=== PATIENT | female | born 1990 | race Caucasian/White ===

== ENCOUNTER 2020-10-18 05:26 | Day surgery (SDC) | payer OTHER ==
[2020-10-15 09:09] LABS: HEMATOCRIT 37.7 % (36.0-47.0); HEMOGLOBIN 13.3 g/dL (12.0-15.5); MEAN CORPUSCULAR HGB CONC 35.2 g/dL (32.0-36.0); MEAN CORPUSCULAR VOLUME 94 fl (80-97); PLATELET COUNT 205 10^3/uL (150-450); RED BLOOD COUNT 4.03 10^6/uL (3.72-5.28); RED CELL DISTRIBUTION WIDTH 11.8 % (11.5-14.0); WHITE BLOOD COUNT 4.8 10^3/uL (4.0-10.5)
[2020-10-15 09:17] LABS: APPEARANCE,URINE SLIGHTLY-CLOUDY; BILIRUBIN,URINE NEGATIVE (NEGATIVE); COLOR,URINE YELLOW; GLUCOSE, URINE NEGATIVE (NEGATIVE); KETONES,URINE NEGATIVE (NEGATIVE); LEUKOCYTE ESTERASE,URINE NEGATIVE (NEGATIVE); NITRITE,URINE NEGATIVE (NEGATIVE); PROTEIN,URINE NEGATIVE (NEGATIVE); URINE SPECIFIC GRAVITY 1.019; UROBILINOGEN,URINE NEGATIVE mg/dL (<2.0)
[2020-10-15 09:40] LABS: ANION GAP 6 (5-19); BLOOD UREA NITROGEN 11 mg/dL (7-20); CALCIUM 9.2 mg/dL (8.4-10.2); CARBON DIOXIDE 29 mmol/L (22-30); CHLORIDE 104 mmol/L (98-107); GLUCOSE 87 mg/dL (75-110); POTASSIUM 4.1 mmol/L (3.6-5.0)
[~2020-10-18 05:26] MED LIST: CEFAZOLIN 1 GM/D5W RTU 1 GM/50 ML RTUPB IV PRN; LACTATED RINGERS 1000 ML IV PRN
[2020-10-18] MEDS ORDERED: CEFAZOLIN 1 GM/D5W RTU 1 GM/50 ML RTUPB IV ONE (06:06)
[2020-10-18] MEDS ORDERED: KETOROLAC TROMETHAMINE 60 MG/2 ML SDV ONE (06:51)
[2020-10-18] MEDS ORDERED: FENTANYL CITRATE INJ/PF 100 MCG/2 ML AMPUL ONE (06:51)
[2020-10-18] MEDS ORDERED: MIDAZOLAM 2 MG/2 ML INJ ONE (06:51)
[2020-10-18] MEDS ORDERED: ONDANSETRON HCL INJ/PF 4 MG/2 ML SDV ONE (06:51)
[2020-10-18] MEDS ORDERED: DEXAMETHASONE SOD PHOSPHATE INJ 4 MG/1 ML VIAL ONE (06:51)
[2020-10-18] MEDS ORDERED: SCOPOLAMINE HYDROBROMIDE 1.5 MG PATCH.TD72 ONE (06:52)
[2020-10-18] MEDS ORDERED: PROPOFOL INJ 200 MG/20 ML VIAL IV ONE (06:52)
[2020-10-18] MEDS: MIDAZOLAM 2 MG/2 ML INJ ONE ×2 (07:00→07:13)
[2020-10-18] MEDS ORDERED: HYDROMORPHONE HCL INJ/PF 2 MG/ML AMPULE ONE (07:12)
[2020-10-18] MEDS ORDERED: DIPHENHYDRAMINE HCL 50 MG/ML VIAL IV PRN (07:32)
[2020-10-18] MEDS ORDERED: PROMETHAZINE HCL INJ 25 MG/1 ML VIAL IV PRN ×2 (07:32)
[2020-10-18] MEDS ORDERED: MEPERIDINE HCL/PF INJ 25 MG/1 ML DISP.SYRIN IV PRN (07:32)
[2020-10-18] MEDS ORDERED: OXYCODONE-ACETAMINOPHEN 5-325 MG TABLET PO PRN ×2 (07:32)
[2020-10-18] MEDS ORDERED: ONDANSETRON HCL INJ/PF 4 MG/2 ML SDV IV PRN (07:32)
[2020-10-18] MEDS ORDERED: HYDROMORPHONE HCL INJ/PF 2 MG/ML AMPULE IV PRN ×2 (07:34→09:00)
--- NOTE | 2020-10-18 08:06 | Operative Report ---
Operative Report DATE OF SURGERY: 10/18/20 PREOPERATIVE DIAGNOSIS: Sterilization POSTOPERATIVE DIAGNOSIS: Same OPERATION: Laparoscopic Filshie clip sterilization SURGEON: TREVER MARKHAM ANESTHESIA: GA TISSUE REMOVED OR ALTERED: None COMPLICATIONS: None ESTIMATED BLOOD LOSS: 5 mL INTRAOPERATIVE FINDINGS: Normal pelvis upper abdomen no endometriosis encountered a small follicular cyst was noted on the left approximately 2 cm PROCEDURE: The usual risks, benefits, expectations and complications of bleeding, infection, anesthesia and damage to other organs have been explaed and understood. No guarantee of permanent sterilization have been made with a risk of of about 1/150/10 years with this procedure. After surgical time out, exam under anesthesia, tenaculum placed, and bladder catheterization ensued. Normal anatomy was noted. The surgeon re-gloved and via an infraumbilical incision thru the subq fat and fascia, the peritoneum was encountered and entered uneventfully. Orgin cannula placed and inflated. The pelvis and upper abdomen was examined, a second 5 mm port placed 3 fingerbreadths above symphysis under direct visualization, the tubes identified in their entirety and filshie clips placed on the antimesenteric side 1 cm from the uterine fundus bilaterally. The gas and instruments were removed, Fasci closed with O vicryl, subq with 3O gut
[2020-10-18] MEDS ORDERED: OXYCODONE-ACETAMINOPHEN 5-325 MG TABLET ONE (08:31)
[2020-10-18 10:09] VITALS: BP 118/78
[2020-10-18] MEDS ORDERED: GLYCOPYRROLATE 1 MG/5 ML VIAL ONE (14:48)
[2020-10-18] MEDS ORDERED: SUCCINYLCHOLINE CHLORIDE INJ 200 MG/10 ML VIAL ONE (14:48)
== END 2020-10-18 09:55 | disposition home or self-care (01) ==
LOC: OROUT 05:26
PROVIDERS: ATTEND Specialist
DX: Z30.2 Encounter for sterilization (principal); N83.02 Follicular cyst of left ovary; Z90.49 Acquired absence of other specified parts of digestive tract; Z79.899 Other long term (current) drug therapy; F41.0 Panic disorder [episodic paroxysmal anxiety]
CPT/HCPCS: 86900; 86901; 36415; 86850; 85027; 87635; 81025; 80048; 81001; 58671; J2250; J0690; J1100; J1885; J1170; J0330; J2405; J2704; J3490; C9803; 851; J3010